=== PATIENT | male | born 1975 | race Caucasian/White ===

== ENCOUNTER 2022-05-06 18:33 | Emergency (ER) | payer OTHER ==
[2022-05-06 19:26] LABS: HEMOGLOBIN 15.8 gm/dl (14.0-17.5); RED BLOOD COUNT 5.09 M/UL (4.20-5.50); WHITE BLOOD COUNT 11.1 K/UL (4.5-11.0)
[2022-05-06 19:54] LABS: BUN/CREATININE RATIO 11 (0-10)
[2022-05-06] MEDS ORDERED: LASIX40 MG PO (22:47)
== END 2022-05-06 23:04 | disposition home or self-care (01) ==
LOC: ER1 18:33
PROVIDERS: Student in an Organized Health Care Education/Training Program
DX: R60.0 Localized edema (principal); I10 Essential (primary) hypertension
CPT/HCPCS: 71045; 80053; 82550; 82553; 83880; 84484; 85025; 93005; 94664; 96374; 99285; J1940

== ENCOUNTER → 2022-05-26 | Outpatient (CLI) | payer OTHER ==
[~2022-05-26] MED LIST: LASIX40 MG PO
== END ==
LOC: ECHO 10:30
DX: R06.02 Shortness of breath (principal); I51.7 Cardiomegaly
CPT/HCPCS: ECHO; 93306; Q9957

== ENCOUNTER → 2022-05-31 | Outpatient (CLI) | payer OTHER | LOC: KOH-I 09:49 | DX: M79.672 Pain in left foot (principal); Q66.6 Other congenital valgus deformities of feet; R60.0 Localized edema; M54.16 Radiculopathy, lumbar region; M43.17 Spondylolisthesis, lumbosacral region | CPT/HCPCS: 72110; 73630 ==